=== PATIENT | male | born 1955 | race Hispanic/Latino ===

== ENCOUNTER 2022-02-11 16:49 | Inpatient (IN) | payer MEDICARE ==
[~2022-02-11] VITALS: Ht 185.4 cm; Wt 102.1 kg
[~2022-02-11 16:49] MED LIST: ASPIRIN325 MG PO; BENZONATATE100 MG PO; BROM-PSE-DM CO473 ML PO; CARVEDILOL12.5 MG; CO Q-10400 MG; COREG12.5 MG PO; COZAAR50 MG PO; DIABETA5 MG PO; GABAPENTIN300 MG PO; HYDROCODON-ACE1 EA12 PO; HYDROCODON-ACE1 EA15; KLOR-CON M2020 MEQ PO; LANTUS100 UNITS/ SC; LEVAQUIN250 MG PO; METHOCARBAMOL500 MG PO; NORCO 10MG-325MG1 EA PO; NORVASC5 MG PO; PLAVIX75 MG PO; PRAVACHOL40 MG PO; PRAVASTATIN SOD20 MG PO; PROMETHAZINE HC25 M1 PO; PROMETHAZINE HC25 MG; PYLERA CAPSULE1 EACH PO; TESSALON PERLE100 MG; ULTRAM50 MG; linzess PO
[2022-02-11 17:52] LABS: BASOPHILS # (AUTO) 0.1 (0.0-0.1); EOSINOPHILS # (AUTO) 0.2 (0.0-0.4); EOSINOPHILS % 2.1 % (0.0-6.0); HEMOGLOBIN 12.6 g/dL (14.0-18.0); LYMPHOCYTES # (AUTO) 1.7 (1.0-3.2); LYMPHOCYTES % 16.6 % (18.0-39.1); MEAN CORPUSCULAR HEMOGLOBIN 33.6 pg (28-32); MONOCYTES # (AUTO) 0.8 (0.2-0.8); MONOCYTES % 7.7 % (4.4-11.3); NEUTROPHILS # (AUTO) 7.5 (2.1-6.9); NEUTROPHILS % 71.4 % (38.7-80.0); PLATELET COUNT 179 x10e3/uL (140-360); RED BLOOD COUNT 3.75 x10e6/uL (4.3-5.7)
[2022-02-11 17:56] LABS: CLARITY,URINE SL CLOUDY (CLEAR); COLOR,URINE STRAW (YELLOW); KETONES,URINE NEGATIVE (NEGATIVE); LEUKOCYTE ESTERASE ,URINE NEGATIVE (NEGATIVE); NITRITE,URINE NEGATIVE (NEGATIVE); PROTEIN,URINE DIPSTICK 2+ (NEGATIVE); URINE UROBILINOGEN 0.2 mg/dL (0.2 - 1)
[2022-02-11 18:13] LABS: BACTERIA,URINE MODERATE /HPF; EPITHELIAL CELLS,URINE FEW /LPF; RBC,URINE 0-5 /HPF (0-5); WBC,URINE (MAN) 0-5 /HPF (0-5)
[2022-02-11 18:16] LABS: ALBUMIN 3.1 g/dL (3.5-5.0); ALBUMIN/GLOBULIN RATIO 0.9 (0.8-2.0); ANION GAP 16.9 mmol/L (8-16); CALCIUM 9.6 mg/dL (8.4-10.2); CREATININE, SERUM 8.66 mg/dL (0.72-1.25); POTASSIUM 3.9 mmol/L (3.5-5.1)
[2022-02-11] MEDS ORDERED: SODIUM CHLORIDE 0.9% 1000ML 1,000 ML IV ONE (20:00)
[2022-02-11] MEDS ORDERED: ONDANSETRON HCL INJ 2MG/ML 2ML 2 MG/ML VIAL IV PRN (20:00)
[2022-02-11] MEDS ORDERED: Morphine 4mg INJECTION 4 MG/ML INJ IV PRN (20:00)
[2022-02-11] MEDS ORDERED: Vancomycin IV 1 GM in SODIUM CHLORIDE 0.9% 250ML 250 ML IV ONE (20:00)
[2022-02-11] MEDS ORDERED: DEXTROSE 50% SYRINGE 50 ML IV PRN (22:45)
[2022-02-11 23:02] VITALS: BP 122/66
[2022-02-12] VITALS (7 sets, daily range): BP systolic 105–144; BP diastolic 55–83
[2022-02-12 04:59] LABS: BASOPHILS # (AUTO) 0.1 (0.0-0.1); EOSINOPHILS # (AUTO) 0.2 (0.0-0.4); EOSINOPHILS % 1.6 % (0.0-6.0); HEMATOCRIT 33.9 % (38.2-49.6); HEMOGLOBIN 11.3 g/dL (14.0-18.0); LYMPHOCYTES # (AUTO) 1.5 (1.0-3.2); LYMPHOCYTES % 15.9 % (18.0-39.1); MEAN CORPUSCULAR HEMOGLOBIN 33.4 pg (28-32); MEAN CORPUSCULAR HGB CONC 33.3 g/dL (31-35); MEAN CORPUSCULAR VOLUME 100.3 fL (81-99); MONOCYTES # (AUTO) 0.8 (0.2-0.8); MONOCYTES % 8.7 % (4.4-11.3); NEUTROPHILS # (AUTO) 6.9 (2.1-6.9); NEUTROPHILS % 71.5 % (38.7-80.0); PLATELET COUNT 155 x10e3/uL (140-360); RED BLOOD COUNT 3.38 x10e6/uL (4.3-5.7); RED CELL DISTRIBUTION WIDTH 13.7 % (11.7-14.4)
[2022-02-12 05:20] LABS: ALBUMIN 2.7 g/dL (3.5-5.0); ALBUMIN/GLOBULIN RATIO 0.9 (0.8-2.0); ANION GAP 15.8 mmol/L (8-16); CALCIUM 8.9 mg/dL (8.4-10.2); CREATININE, SERUM 8.96 mg/dL (0.72-1.25); POTASSIUM 3.8 mmol/L (3.5-5.1)
[2022-02-12] MEDS ORDERED: DEXTROSE 5% 1,000 ML IV SCH (07:30)
[2022-02-12] MEDS ORDERED: HYDROCODONE/APAP 7.5MG-325MG 1 EA TAB PO PRN (09:30)
[2022-02-12] MEDS ORDERED: GLYBURIDE 5 MG TAB PO SCH (12:00)
[2022-02-12] MEDS ORDERED: METHOCARBAMOL 500 MG TAB PO PRN (15:00)
[2022-02-12] MEDS: GABAPENTIN 300 MG CAP PO SCH ×2 (15:00→21:21)
[2022-02-12] MEDS: CARVEDILOL 12.5 MG TAB PO SCH (16:45)
[2022-02-12] MEDS: INSULIN REGULAR, HUMAN 100 UNIT/1 ML SQ SCH ×2 (16:58→21:22)
[2022-02-12 17:20] LABS: BODY FLUID APPEARANCE CLEAR; BODY FLUID COLOR COLORLESS; BODY FLUID TYPE PERITONEAL; RBC,BODY FLUID < 2000 cells/uL; WBC,BODY FLUID 9 cells/uL
[2022-02-13] VITALS (8 sets, daily range): BP systolic 102–132; BP diastolic 55–89
[2022-02-13] MEDS: AMLODIPINE BESYLATE 10 MG TAB PO SCH (08:56)
[2022-02-13] MEDS: GABAPENTIN 300 MG CAP PO SCH ×4 (08:56→21:05)
[2022-02-13] MEDS: CARVEDILOL 12.5 MG TAB PO SCH ×2 (08:56→17:24)
[2022-02-13 08:58] LABS: ALBUMIN 2.7 g/dL (3.5-5.0); ALBUMIN/GLOBULIN RATIO 0.9 (0.8-2.0); ANION GAP 14.8 mmol/L (8-16); CREATININE, SERUM 8.33 mg/dL (0.72-1.25); POTASSIUM 3.8 mmol/L (3.5-5.1)
[2022-02-13] MEDS: INSULIN REGULAR, HUMAN 100 UNIT/1 ML SQ SCH ×4 (09:19→21:00)
[2022-02-13] MEDS ORDERED: AMIODARONE HCL200 MG PO (18:31)
[2022-02-13] MEDS ORDERED: LOPERAMIDE HCL 2 MG CAP PO PRN (18:45)
[2022-02-13] MEDS: CHOLESTYRAMINE 4 GM PACKET PO SCH (21:05)
[2022-02-14] VITALS (8 sets, daily range): BP systolic 103–127; BP diastolic 60–71
[2022-02-14 06:07] LABS: ANION GAP 19.7 mmol/L (8-16); CALCIUM 8.8 mg/dL (8.4-10.2); CREATININE, SERUM 7.71 mg/dL (0.72-1.25); POTASSIUM 3.7 mmol/L (3.5-5.1)
[2022-02-14] MEDS: AMLODIPINE BESYLATE 10 MG TAB PO SCH (08:58)
[2022-02-14] MEDS: CARVEDILOL 12.5 MG TAB PO SCH ×2 (08:58→16:38)
[2022-02-14] MEDS: ASPIRIN 325 MG TAB PO SCH (08:59)
[2022-02-14] MEDS: AMIODARONE HCL 200 MG TAB PO SCH (08:59)
[2022-02-14] MEDS: GABAPENTIN 300 MG CAP PO SCH ×3 (09:00→21:00)
[2022-02-14] MEDS: CHOLESTYRAMINE 4 GM PACKET PO SCH ×3 (09:00→21:00)
[2022-02-14] MEDS: INSULIN REGULAR, HUMAN 100 UNIT/1 ML SQ SCH ×4 (09:06→21:45)
[2022-02-15] VITALS (7 sets, daily range): BP systolic 107–141; BP diastolic 57–78
[2022-02-15 06:16] LABS: BASOPHILS # (AUTO) 0.1 (0.0-0.1); BASOPHILS % 1.2 % (0.0-1.0); EOSINOPHILS # (AUTO) 0.3 (0.0-0.4); EOSINOPHILS % 4.6 % (0.0-6.0); HEMATOCRIT 32.3 % (38.2-49.6); HEMOGLOBIN 11.3 g/dL (14.0-18.0); LYMPHOCYTES # (AUTO) 1.7 (1.0-3.2); LYMPHOCYTES % 23.3 % (18.0-39.1); MEAN CORPUSCULAR HEMOGLOBIN 33.3 pg (28-32); MEAN CORPUSCULAR VOLUME 95.3 fL (81-99); MONOCYTES # (AUTO) 0.7 (0.2-0.8); NEUTROPHILS # (AUTO) 4.4 (2.1-6.9); NEUTROPHILS % 60.7 % (38.7-80.0); PLATELET COUNT 147 x10e3/uL (140-360); RED BLOOD COUNT 3.39 x10e6/uL (4.3-5.7); RED CELL DISTRIBUTION WIDTH 13.7 % (11.7-14.4)
[2022-02-15 06:48] LABS: ANION GAP 15.5 mmol/L (8-16); CALCIUM 8.6 mg/dL (8.4-10.2); CREATININE, SERUM 7.95 mg/dL (0.72-1.25); POTASSIUM 3.5 mmol/L (3.5-5.1)
[2022-02-15] MEDS: INSULIN REGULAR, HUMAN 100 UNIT/1 ML SQ SCH ×4 (08:00→21:00)
[2022-02-15] MEDS: CHOLESTYRAMINE 4 GM PACKET PO SCH ×3 (08:51→21:00)
[2022-02-15] MEDS: ASPIRIN 325 MG TAB PO SCH (08:51)
[2022-02-15] MEDS: AMLODIPINE BESYLATE 10 MG TAB PO SCH (08:52)
[2022-02-15] MEDS: GABAPENTIN 300 MG CAP PO SCH ×3 (08:52→21:00)
[2022-02-15] MEDS: CARVEDILOL 12.5 MG TAB PO SCH ×2 (08:52→16:58)
[2022-02-15] MEDS: AMIODARONE HCL 200 MG TAB PO SCH (08:53)
[2022-02-15] MEDS ORDERED: METHYLPREDNISOLONE SOD SUCC 125 MG/2ML VIAL IV ONE (11:45)
[2022-02-15] MEDS ORDERED: POTASSIUM CHLORIDE 20 MEQ TAB CR PO ONE (12:00)
[2022-02-15] MEDS ORDERED: ONDANSETRON HCL 4 MG ORAL DISINTEGRATING TAB PO PRN (13:30)
[2022-02-15] MEDS: INDOMETHACIN 25 MG CAP PO SCH ×2 (16:58→21:42)
[2022-02-16] VITALS: BP 150/78
[2022-02-16 04:00] VITALS: BP 138/79
[2022-02-16] MEDS: INSULIN REGULAR, HUMAN 100 UNIT/1 ML SQ SCH ×2 (08:25→11:35)
[2022-02-16] MEDS: AMIODARONE HCL 200 MG TAB PO SCH (08:28)
[2022-02-16] MEDS: ASPIRIN 325 MG TAB PO SCH (08:28)
[2022-02-16] MEDS: INDOMETHACIN 25 MG CAP PO SCH (08:29)
[2022-02-16] MEDS: CHOLESTYRAMINE 4 GM PACKET PO SCH (08:29)
[2022-02-16] MEDS: CARVEDILOL 12.5 MG TAB PO SCH (08:29)
[2022-02-16] MEDS: GABAPENTIN 300 MG CAP PO SCH (08:29)
[2022-02-16] MEDS: AMLODIPINE BESYLATE 10 MG TAB PO SCH (08:29)
[2022-02-16 08:47] VITALS: BP 138/77
[2022-02-16 09:08] VITALS: BP 138/77
[2022-02-16] MEDS ORDERED: INDOMETHACIN25 MG PO (10:42)
[2022-02-16] MEDS ORDERED: INSULIN REGULAR, HUMAN 100 UNIT/1 ML SQ ONE (12:15)
[2022-02-16 12:24] VITALS: BP 141/85
== END 2022-02-16 13:00 | disposition home or self-care (01) | DRG 393 ==
LOC: ER 17:17 → ERHOLD 20:04 → MED/SURG2 22:42 → OBSVTOIN 02-12 21:32
PROVIDERS: ADMIT Internal Medicine; ATTEND Internal Medicine
PROC: 3E1M39Z Irrigation of Peritoneal Cavity using Dialysate, Percutaneous Approach (ICD-10-PCS; principal; 2022-02-12)
DX: K66.8 Other specified disorders of peritoneum (principal); N18.6 End stage renal disease; I13.2 Hypertensive heart and chronic kidney disease with heart failure and with stage 5 chronic kidney disease, or end stage renal disease; I50.22 Chronic systolic (congestive) heart failure; T80.89XA Other complications following infusion, transfusion and therapeutic injection, initial encounter; D63.1 Anemia in chronic kidney disease; E11.22 Type 2 diabetes mellitus with diabetic chronic kidney disease; I25.10 Atherosclerotic heart disease of native coronary artery without angina pectoris; R07.9 Chest pain, unspecified; R09.1 Pleurisy; Z99.2 Dependence on renal dialysis; Z90.49 Acquired absence of other specified parts of digestive tract; Z86.718 Personal history of other venous thrombosis and embolism; Z91.048 Other nonmedicinal substance allergy status; Z95.5 Presence of coronary angioplasty implant and graft; Z95.810 Presence of automatic (implantable) cardiac defibrillator; Z95.828 Presence of other vascular implants and grafts; Z83.3 Family history of diabetes mellitus; Z82.49 Family history of ischemic heart disease and other diseases of the circulatory system
CPT/HCPCS: 36415; 71045; 71046; 71101; 74176; 80048; 80053; 81001; 82150; 82550; 82553; 82948; 83690; 84484; 85025; 85379; 87040; 87070; 87205; 89051; 93005; 94799; 96372; 99284; G0378; J1817; J2543; J2930; J3370; J7030; J7050; J7070; J7799